=== PATIENT | female | born 1985 | race Caucasian/White ===

== ENCOUNTER 2017-05-08 17:26 | Outpatient (CLI) | payer OTHER ==
[2017-05-08 17:49] VITALS: BP 137/77
[2017-05-08] MEDS ORDERED: PRENATAL TABLE1 EAC3 PO (17:56)
[2017-05-08 18:40] LABS: EOSINOPHIL (%) 0.2 % (0-5); HEMATOCRIT 35.2 % (36.0-46.0); IMMATURE GRANULOCYTE (%) 0.2 % (0.0-0.7); INSTRUMENT ABS NEUTROPHIL CT 7.2 K/uL; MCH 29.9 PG (29.0-34.0); MCHC 33.2 G/DL (30.0-36.0); MEAN PLAT.VOLUME 9.3 uM^3 (9.5-12.4); MONOCYTE (%) 4.4 % (3-12); MONOCYTE COUNT 0.4 K/uL (0-0.8); NEUTROPHIL (%) 83.8 % (45-76); NEUTROPHIL COUNT 7.2 K/uL (1.8-6.4); PLATELET COUNT 211 K/uL (156-360); RBC DIS.WIDTH-CV 13.1 % (11.8-14.6); RBC DIS.WIDTH-SD 42.3 % (39-53); RED BLOOD COUNT 3.91 M/uL (3.80-5.20); WHITE BLOOD COUNT 8.6 K/uL (4.1-10.2)
[2017-05-08 18:44] LABS: UR CREATININE CONCENTRATION 44.7 MG/DL
[2017-05-08 18:55] LABS: ANION GAP 11 MEQ/L (2-14); CHLORIDE 103 MEQ/L (99-109); POTASSIUM 3.7 MEQ/L (3.7-5.4); SAMPLE HEMOLYSIS CHECK 0; SAMPLE ICTERIC CHECK 0; SAMPLE LIPEMIA CHECK 0; SODIUM 137 MEQ/L (136-147); TOTAL BILIRUBIN 0.3 MG/DL (0.0-1.0)
[2017-05-08 19:01] LABS: ALKALINE PHOSPHATASE 112 IU/L (3-129); GFR ESTIMATE (CALCULATED) > 59 mL/min/; GLUCOSE 74 mg/dL (70-99); UREA NITROGEN (BUN) 7 mg/dL (9-23)
[2017-05-08 19:15] VITALS: BP 136/82
== END 2017-05-08 19:35 | disposition home or self-care (01) ==
LOC: LDRP-OP 17:26 → 2WEST 17:27 → LDRP-OP 07-17 09:30
PROVIDERS: Nurse Practitioner
DX: O13.3 Gestational [pregnancy-induced] hypertension without significant proteinuria, third trimester (principal); Z3A.34 34 weeks gestation of pregnancy
CPT/HCPCS: 59025; 80053; 82570; 84156; 85025; G0378

== ENCOUNTER 2017-05-12 16:51 | Outpatient (CLI) | payer OTHER ==
[~2017-05-12] VITALS: Ht 180.3 cm; Wt 104.5 kg
[~2017-05-12 16:51] MED LIST: PRENATAL TABLE1 EAC3 PO
[2017-05-12 17:33] VITALS: BP 139/77
[2017-05-12 18:09] LABS: EOSINOPHIL (%) 0.2 % (0-5); HEMATOCRIT 35.7 % (36.0-46.0); IMMATURE GRANULOCYTE (%) 0.5 % (0.0-0.7); IMMATURE GRANULOCYTE COUNT 0.1 K/uL; INSTRUMENT ABS NEUTROPHIL CT 8.1 K/uL; LYMPHOCYTE COUNT 1.1 K/uL (1.0-2.8); MCH 29.6 PG (29.0-34.0); MCHC 33.1 G/DL (30.0-36.0); MCV 89.5 FL (83-99); MEAN PLAT.VOLUME 9.3 uM^3 (9.5-12.4); MONOCYTE (%) 2.9 % (3-12); MONOCYTE COUNT 0.3 K/uL (0-0.8); NEUTROPHIL (%) 85.1 % (45-76); NEUTROPHIL COUNT 8.1 K/uL (1.8-6.4); PLATELET COUNT 239 K/uL (156-360); RBC DIS.WIDTH-CV 13.1 % (11.8-14.6); RBC DIS.WIDTH-SD 42.6 % (39-53); RED BLOOD COUNT 3.99 M/uL (3.80-5.20); WHITE BLOOD COUNT 9.5 K/uL (4.1-10.2)
[2017-05-12 18:25] LABS: UR CREATININE CONCENTRATION 89.4 MG/DL
[2017-05-12 18:30] LABS: ALKALINE PHOSPHATASE 111 IU/L (3-129); ANION GAP 12 MEQ/L (2-14); CHLORIDE 104 MEQ/L (99-109); GFR ESTIMATE (CALCULATED) > 59 mL/min/; GLUCOSE 124 mg/dL (70-99); POTASSIUM 3.5 MEQ/L (3.7-5.4); SAMPLE HEMOLYSIS CHECK 0; SAMPLE ICTERIC CHECK 0; SAMPLE LIPEMIA CHECK 0; SODIUM 137 MEQ/L (136-147); UREA NITROGEN (BUN) 5 mg/dL (9-23); URIC ACID 3.7 mg/dL (3.1-9.2)
[2017-05-12 18:31] LABS: TOTAL BILIRUBIN 0.2 MG/DL (0.0-1.0)
[2017-05-12 18:36] VITALS: BP 124/78
[2017-05-12 19:06] VITALS: BP 134/83
== END 2017-05-12 19:30 | disposition home or self-care (01) ==
LOC: LDRP-OP 16:51 → 2WEST 16:52 → LDRP-OP 07-17 22:23
PROVIDERS: Nurse Practitioner
DX: O13.3 Gestational [pregnancy-induced] hypertension without significant proteinuria, third trimester (principal); Z3A.34 34 weeks gestation of pregnancy
CPT/HCPCS: 59025; 80053; 82570; 84156; 84550; 85025; G0378

== ENCOUNTER 2017-05-28 17:58 | Inpatient (IN) | payer OTHER ==
[~2017-05-28] VITALS: Ht 180.3 cm; Wt 108.8 kg
[2017-05-28 18:22] VITALS: BP 146/89
[2017-05-28 19:45] VITALS: BP 145/88
[2017-05-28 19:50] LABS: EOSINOPHIL (%) 0.3 % (0-5); IMMATURE GRANULOCYTE (%) 0.7 % (0.0-0.7); IMMATURE GRANULOCYTE COUNT 0.1 K/uL; INSTRUMENT ABS NEUTROPHIL CT 7.3 K/uL; LYMPHOCYTE COUNT 1.3 K/uL (1.0-2.8); MCH 29.4 PG (29.0-34.0); MCHC 33.1 G/DL (30.0-36.0); MCV 88.8 FL (83-99); MEAN PLAT.VOLUME 9.4 uM^3 (9.5-12.4); MONOCYTE (%) 5.3 % (3-12); MONOCYTE COUNT 0.5 K/uL (0-0.8); NEUTROPHIL (%) 79.7 % (45-76); NEUTROPHIL COUNT 7.3 K/uL (1.8-6.4); PLATELET COUNT 223 K/uL (156-360); RBC DIS.WIDTH-CV 13.2 % (11.8-14.6); RBC DIS.WIDTH-SD 42.7 % (39-53); RED BLOOD COUNT 3.94 M/uL (3.80-5.20); WHITE BLOOD COUNT 9.1 K/uL (4.1-10.2)
[2017-05-28 20:15] VITALS: BP 141/89
[2017-05-28 20:27] LABS: ALKALINE PHOSPHATASE 122 IU/L (3-129); ANION GAP 10 MEQ/L (2-14); CHLORIDE 105 MEQ/L (99-109); GFR ESTIMATE (CALCULATED) > 59 mL/min/; GLUCOSE 112 mg/dL (70-99); POTASSIUM 3.8 MEQ/L (3.7-5.4); SAMPLE HEMOLYSIS CHECK 0; SAMPLE ICTERIC CHECK 0; SAMPLE LIPEMIA CHECK 0; SODIUM 138 MEQ/L (136-147); TOTAL BILIRUBIN 0.2 MG/DL (0.0-1.0); UREA NITROGEN (BUN) 8 mg/dL (9-23)
[2017-05-28 21:12] VITALS: BP 136/85
[2017-05-28 21:29] LABS: UR CREATININE CONCENTRATION 66.9 MG/DL
[2017-05-28 22:38] VITALS: BP 133/87
[2017-05-28 23:42] VITALS: BP 114/54
[2017-05-29] VITALS (27 sets, daily range): BP systolic 105–146; BP diastolic 55–92
[2017-05-30] VITALS (32 sets, daily range): BP systolic 101–156; BP diastolic 57–94
[2017-05-31] VITALS (10 sets, daily range): BP systolic 106–129; BP diastolic 56–73
[2017-05-31] MEDS ORDERED: DOCUSATE SODIU100 MG PO (00:57)
[2017-05-31] MEDS ORDERED: IBUPROFEN800 MG PO (00:57)
[2017-05-31] MEDS ORDERED: ENDOCET 5-3251 EACH PO (00:57)
[2017-05-31 07:13] LABS: EOSINOPHIL (%) 0 % (0-5); HEMATOCRIT 32.7 % (36.0-46.0); IMMATURE GRANULOCYTE (%) 0.4 % (0.0-0.7); IMMATURE GRANULOCYTE COUNT 0.1 K/uL; INSTRUMENT ABS NEUTROPHIL CT 11.2 K/uL; LYMPHOCYTE COUNT 0.9 K/uL (1.0-2.8); MCH 29.8 PG (29.0-34.0); MCV 90.3 FL (83-99); MEAN PLAT.VOLUME 9.7 uM^3 (9.5-12.4); MONOCYTE COUNT 0.5 K/uL (0-0.8); NEUTROPHIL (%) 88.8 % (45-76); NEUTROPHIL COUNT 11.2 K/uL (1.8-6.4); PLATELET COUNT 176 K/uL (156-360); RBC DIS.WIDTH-CV 13.2 % (11.8-14.6); RBC DIS.WIDTH-SD 43.4 % (39-53); RED BLOOD COUNT 3.62 M/uL (3.80-5.20); WHITE BLOOD COUNT 12.6 K/uL (4.1-10.2)
[2017-05-31 07:36] LABS: ALKALINE PHOSPHATASE 119 IU/L (3-129); ANION GAP 8 MEQ/L (2-14); CHLORIDE 102 MEQ/L (99-109); GFR ESTIMATE (CALCULATED) > 59 mL/min/; GLUCOSE 96 mg/dL (70-99); SAMPLE HEMOLYSIS CHECK 0; SAMPLE ICTERIC CHECK 0; SAMPLE LIPEMIA CHECK 0; SODIUM 136 MEQ/L (136-147); TOTAL BILIRUBIN 0.5 MG/DL (0.0-1.0); UREA NITROGEN (BUN) 8 mg/dL (9-23)
[2017-06-01 08:31] VITALS: BP 130/75
[2017-06-01 13:06] VITALS: BP 135/82
[2017-06-01 15:45] VITALS: BP 130/75
[2017-06-01 20:46] VITALS: BP 127/73
[2017-06-02] VITALS (8 sets, daily range): BP systolic 118–152; BP diastolic 66–85
[2017-06-03 03:34] VITALS: BP 129/70
[2017-06-03 08:26] VITALS: BP 143/87
[2017-06-03 13:35] VITALS: BP 129/80
== END 2017-06-03 17:35 | disposition home or self-care (01) | DRG 766 ==
LOC: LDRP-OP 17:58 → 2WEST 18:00 → LDRP-OP 19:11 → 2WEST 05-31 00:15 → LDRP-OP 07-17 13:12
PROVIDERS: Nurse Practitioner; Obstetrics & Gynecology
DX: O62.0 Primary inadequate contractions (principal); O63.0 Prolonged first stage (of labor); O32.4XX0 Maternal care for high head at term, not applicable or unspecified; O99.824 Streptococcus B carrier state complicating childbirth; O13.4 Gestational [pregnancy-induced] hypertension without significant proteinuria, complicating childbirth; Z3A.37 37 weeks gestation of pregnancy; Z37.0 Single live birth; Q51.818 Other congenital malformations of uterus
CPT/HCPCS: 80053; 82570; 84156; 85025; 86850; 86900; 86901; C1755; G0378; J0456; J0595; J0690; J1170; J2175; J2250; J2274; J2405; J2540; J2590; J3010; J7120